=== PATIENT | male | born 1970 | race Two or more races ===

== ENCOUNTER 2023-06-26 00:58 | Emergency (ER) | payer BC ==
[~2023-06-26] VITALS: Ht 167.6 cm; Wt 90.7 kg
[2023-06-26 02:22] VITALS: BP 104/85; TEMP 98.5; O2SAT 98
== END 2023-06-26 02:51 | disposition home or self-care (01) ==
LOC: ER 01:14
DX: J06.9 Acute upper respiratory infection, unspecified (principal); H69.83 Other specified disorders of Eustachian tube, bilateral